=== PATIENT | female | born 1960 | race Caucasian/White ===

== ENCOUNTER 2019-05-25 17:38 | Emergency (ER) | payer OTHER ==
[2019-05-25 18:21] VITALS: BP 146/94
--- NOTE | 2019-05-25 18:38 | UC ---
Complaint Female HPI - HPI Summary HPI Summary: 59-year-old female presents with concerns for UTI. She states that for the past 3 days she has been noticing some lower back discomfort and today she started with dysuria, frequency, urgency, and hematuria. Denies fever, chills, abdominal pain, nausea, vomiting, vaginal discharge, or abnormal vaginal bleeding. - History Of Current Complaint Chief Complaint: UCGU Stated Complaint: UTI Time Seen by Provider: 05/25/19 18:19 Hx Obtained From: Patient Pain Intensity: 4 - Allergies/Home Medications Allergies/Adverse Reactions: Allergies Allergy/AdvReac Type Severity Reaction Status Date / Time No Known Allergies Allergy Verified 05/25/19 18:21 Home Medications: Home Medications Anastrozole [Arimidex] 1 mg PO 05/25/19 [History] PMH/Surg Hx/FS Hx/Imm Hx Previously Healthy: Yes - Surgical History Surgical History: Yes Surgery Procedure, Year, and Place: HYSTERECTOMY 2014. RECENT - Rt BREAST BIOPSY. LT BREAST - BENIGN LUMPECTOMY - Family History Known Family History: Positive: Non-Contributory - Social History Occupation: Works From/At Home Lives: Alone Alcohol Use: Occasionally Alcohol Amount: 2 Substance Use Type: None Smoking Status (MU): Former Smoker Type: Cigarettes Amount Used/How Often: 1 PACK/WEEK Have You Smoked in the Last Year: No Review of Systems All Other Systems Reviewed And Are Negative: Yes Constitutional: Negative: Fever, Chills Respiratory: Positive: Negative Cardiovascular: Positive: Negative Gastrointestinal: Negative: Abdominal Pain, Vomiting, Nausea Genitourinary: Positive: Dysuria, Hematuria, Frequency, Urgency. Negative: Vaginal/Penile Discharge, Abnormal Bleeding Musculoskeletal: Positive: Negative Neurological: Positive: Negative Is Patient Immunocompromised?: No Physical Exam - Summary Physical Exam Summary: GENERAL APPEARANCE: Well developed, well nourished, alert and cooperative, and appears to be in no acute distress. CARDIAC: Normal S1 and S2. No S3, S4 or murmurs. Rhythm is regular. There is no peripheral edema, cyanosis or pallor. Extremities are warm and well perfused. Capillary refill is less than 2 seconds. Peripheral pulses intact. LUNGS: Clear to auscultation without rales, rhonchi, wheezing or diminished breath sounds. ABDOMEN: Positive bowel sounds. Soft, nondistended, nontender. No guarding or rebound. No masses or hepatosplenomegally. No CVA tenderness. MUSKULOSKELETAL: ROM intact to all extremities. No joint erythema or tenderness. Normal muscular development. Normal gait. SKIN: Skin normal color, texture and turgor with no lesions or eruptions. Triage Information Reviewed: Yes Vital Signs: Initial Vital Signs Temp 98.5 F 05/25/19 18:18 Pulse 53 05/25/19 18:18 Resp 18 05/25/19 18:18 BP 146/94 05/25/19 18:18 Pulse Ox 100 05/25/19 18:18 Vital Signs Reviewed: Yes Complaint Female Dx - Course Course Of Treatment: 59-year-old female presents with concerns for UTI. She states that for the past 3 days she has been noticing some lower back discomfort and today she started with dysuria, frequency, urgency, and hematuria. Denies fever, chills, abdominal pain, nausea, vomiting, vaginal discharge, or abnormal vaginal bleeding. Afebrile. Elevated blood pressure otherwise vitals stable. Her exam was overall unremarkable. [id number] urinalysis showed trace leukocytes , trace blood, and trace protein. A urine culture is pending. Based on her symptoms will treat her empirically for a urinary tract infection with Macrobid 100 mg twice a day 5 days. I will also provide her with a prescription for Pyridium 100 mg 3 times a day 2 days to help with the discomfort. She is to return here or follow up with primary care provider in 3-5 days if symptoms are not improving. Anticipatory guidance and warning symptoms were reviewed with the patient. Verbalizes understanding of care. - Differential Dx/Diagnosis Differential Diagnosis/HQI/PQRI: Renal Colic, Urinary Tract Infection Provider Diagnosis: UTI (urinary tract infection) Discharge - Sign-Out/Discharge Documenting (check all that apply): Patient Departure All imaging exams completed and their final reports reviewed: No Studies - Discharge Plan Condition: Stable Disposition: HOME Prescriptions: Nitrofurantoin Monohyd/M-Cryst [Macrobid 100 mg Capsule] 100 mg PO BID #10 cap Phenazopyridine TAB* [Pyridium 100 mg TAB*] 100 mg PO TID #6 tab Patient Education Materials: Urinary Tract Infection in Women (ED) Referrals: Rod Branham MD [Primary Care Provider] - 3 Days Additional Instructions: Your urine test in the clinic today is suggestive of a urinary tract infection. We will start you on an antibiotic to treat for the infection. We will also send a urine culture today to see what bacteria grow out and make sure the antibiotic you were prescribed is appropriate to treat the infection. It will take 48-72 hours to get these results. We will contact you if there is any change in your treatment plan. Start Macrobid 1 tab twice a day for 5 days. Take Pyridium 1 tablet every 8 hours for next 2 days to help with the discomfort. This medication will turn your urine an orange color. Drink plenty of fluids. To help prevent urinary tract infections: 1) Be sure to wipe from front to back. 2) Avoid taking bubble baths. Follow up with your primary care provider in 3-5 days if symptoms persist. Seek immediate medical attention in the emergency room if you develop fever greater than 100.5 F, have severe abdominal pain, persistent vomiting, or any worsening of symptoms. - Billing Disposition and Condition Condition: STABLE Disposition: Home
== END 2019-05-25 18:55 | disposition home or self-care (01) ==
LOC: UCEAST 17:38
DX: N39.0 Urinary tract infection, site not specified (principal); Z87.891 Personal history of nicotine dependence
CPT/HCPCS: 81002; 87086; 99202; G0463

== ENCOUNTER 2019-11-14 10:51 | Emergency (ER) | payer OTHER ==
[2019-11-14 11:13] VITALS: BP 132/77
--- NOTE | 2019-11-14 11:30 | UC ---
Bite Injury/Animal HPI - HPI Summary HPI Summary: Noticed itching on her left posterior shoulder this morning. It started to hurt when she tripped itching and she took a picture and saw a tick. - History of Current Complaint Chief Complaint: Lyly Stated Complaint: TICK BITE Time Seen by Provider: 11/14/19 11:15 Hx Obtained From: Patient Severity Currently: Mild Severity Initially: Mild Pain Intensity: 0 Onset/Duration: Sudden Onset, Lasting Hours Type of Bite: Animal - Tick Associated Signs And Symptoms: Positive: Negative Animal Available for Observation: Yes - Allergies/Home Medications Allergies/Adverse Reactions: Allergies Allergy/AdvReac Type Severity Reaction Status Date / Time No Known Allergies Allergy Verified 11/14/19 11:06 PMH/Surg Hx/FS Hx/Imm Hx Previously Healthy: Yes - Surgical History Surgical History: Yes Surgery Procedure, Year, and Place: HYSTERECTOMY 2014. RECENT - Rt BREAST BIOPSY. LT BREAST - BENIGN LUMPECTOMY - Family History Known Family History: Positive: Non-Contributory - Social History Alcohol Use: Occasionally Alcohol Amount: 2 Substance Use Type: None Smoking Status (MU): Former Smoker Type: Cigarettes Amount Used/How Often: 1 PACK/WEEK Have You Smoked in the Last Year: No Review of Systems All Other Systems Reviewed And Are Negative: Yes Skin: Positive: Other - Tick embedded in left posterior shoulder Physical Exam - Summary Physical Exam Summary: There is a small engorged black-legged tick on her posterior left shoulder Triage Information Reviewed: Yes Appearance: Well-Appearing, No Pain Distress Vital Signs: Initial Vital Signs Temp 97.6 F 11/14/19 11:07 Pulse 56 11/14/19 11:07 Resp 18 11/14/19 11:07 BP 132/77 11/14/19 11:07 Pulse Ox 100 11/14/19 11:07 Vital Signs Reviewed: Yes ENT Exam: Normal Musculoskeletal Exam: Normal Neurological Exam: Normal Skin Exam: Other - live, blacklegged, unengorged tick Procedures - Procedure Summary Procedure Summary: Using a plastic tick puller the tick was easily removed intact. It was still alive after was removed. Bite Injury Course/Dx - Course Course Of Treatment: Ms. Arevalo had a small deer tick removed. This is very unlikely to have been on long enough to transmit Lyme however she is adamant about wanting prophylaxis. - Differential Dx/Diagnosis Provider Diagnosis: Tick bite Discharge ED - Sign-Out/Discharge Documenting (check all that apply): Patient Departure All imaging exams completed and their final reports reviewed: No Studies - Discharge Plan Condition: Stable Disposition: HOME Patient Education Materials: Tick Bite (ED) Referrals: Rod Branham MD [Primary Care Provider] - - Billing Disposition and Condition Condition: STABLE Disposition: Home
[2019-11-14] MEDS ORDERED: DOXYcycline CAP(*) 100 MG PO ONE (11:32)
== END 2019-11-14 11:55 | disposition home or self-care (01) ==
LOC: UCEAST 10:51
DX: S40.262A Insect bite (nonvenomous) of left shoulder, initial encounter (principal); Z87.891 Personal history of nicotine dependence; W57.XXXA Bitten or stung by nonvenomous insect and other nonvenomous arthropods, initial encounter; Y92.9 Unspecified place or not applicable
CPT/HCPCS: 99212; A9270-GY; G0463